=== PATIENT | female | born 1980 | race Caucasian/White ===

== ENCOUNTER 2017-02-19 16:21 | Emergency (ER) | payer OTHER ==
[~2017-02-19] VITALS: Ht 167.6 cm; Wt 83.0 kg
[2017-02-19 16:23] VITALS: BP 139/76; PULSE 90; RESP 18; TEMP 98.6; O2SAT 98
--- NOTE | 2017-02-19 16:32 | PD ---
Physical Exam Date Seen by Provider: Feb 19, 2017 Time Seen by Provider: 16:31 Narrative 36 YOWF C/O LBP WITH SCIATICA AFTER LIFTING TODAY. H/O CHRONIC BACK PAIN. PAIN . VS NOTED WAITING FOR BED PLACEMENT Data Data Last Documented VS Vital Signs Date Time Temp Pulse Resp B/P (MAP) Pulse Ox O2 Delivery O2 Flow Rate FiO2 02/19/17 16:23 98.6 90 18 139/76 (97) 98 Room Air MDM Medical Record Reviewed: No Supervised Visit with BOB: Yes Isidro Rodriguez Feb 19, 2017 16:32
--- NOTE | 2017-02-19 16:44 | PD ---
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 History of chronic back pain. Reports intermittent numbness and tingling in her toes but denies loss of sensation. Patient is a with a limp to the left lower extremity. Denies encopresis, incontinence, saddle anesthesias. Denies IV drug use or cancer. Denies fever, vomiting, change in urine or stool. Has taken ibuprofen for symptom management. Symptoms are mild in severity. Has no other medical complaints. No other modifying factors or associated signs and symptoms. PFSH Past Medical History Cardiovascular Problems: Yes (MVP) Diabetes: Yes ?: Not Past Surgical History Hysterectomy: Yes (5 YEARS AGO) Social History Tobacco Use: No Allergies-Medications (Allergen,Severity, Reaction): Coded Allergies: ketorolac (Verified Allergy, Unknown, Hives, 02/19/17) meperidine (Verified Allergy, Unknown, Nausea/Vomiting, 02/19/17) tramadol (Verified Allergy, Unknown, Itching, 02/19/17) Reported Meds & Prescriptions Reported Meds & Active Scripts Active Ibuprofen 800 Mg Tab 800 Mg PO Q6HR PRN Robaxin (Methocarbamol) 500 Mg Tab 500 Mg PO QID PRN Review of Systems Except as stated in HPI: all other systems reviewed are Neg Physical Exam Narrative GENERAL: Well-nourished, well-developed female patient, in no acute distress; afebrile, nontoxic-appearing SKIN: Warm and dry. HEAD: Atraumatic. Normocephalic. EYES: Pupils equal and round. No scleral icterus. No injection or drainage. ENT: Mucosa pink and moist. Airway patent. NECK: Trachea midline. CARDIOVASCULAR: Regular rate. RESPIRATORY: No accessory muscle use. GASTROINTESTINAL: Flat. MUSCULOSKELETAL: Bilateral lower extremities supple and non-tense with 2+ pedal pulses and sensory intact; with full range of motion and 5/5 strength. 2 + DTRs bilaterally. Active dorsiflexion and extension of bilateral feet. Left straight leg raise is positive for low back pain. Ambulatory in room with normal gait. Sitting up in bed at 90. No obvious deformities. No clubbing. No cyanosis. No edema. BACK: No midline point tenderness on palpation of the lumbar spine. Tenderness on palpation of left lumbar iliosacral area. No obvious deformities. NEUROLOGICAL: Awake and alert. Oriented 3. No obvious cranial nerve deficits. Motor grossly within normal limits. Normal speech. Moves all extremities. 5/5 strength to all extremities. Sensory intact. PSYCHIATRIC: Appropriate mood and affect; insight and judgment normal. Data Data Last Documented VS Vital Signs Date Time Temp Pulse Resp B/P (MAP) Pulse Ox O2 Delivery O2 Flow Rate FiO2 02/19/17 17:03 02/19/17 16:23 98.6 90 18 98 Room Air Orders Orders Orphenadrine Inj (Norflex Inj) (02/19/17 17:00) Ibuprofen (Motrin) (02/19/17 17:00) [facility] Medical Decision Making Medical Screen Exam Complete: Yes Emergency Medical Condition: Yes Medical Record Reviewed: Yes Differential Diagnosis Low back pain, sciatica, lumbar radiculopathy, low back strain Narrative Course 36-year-old female physical exam and history of present illness consistent with left-sided low back pain with sciatica. Denies encopresis, incontinence, saddle anesthesias. Denies IV drug use or cancer. Patient is ambulatory in the room with a limp to the left lower extremity. No midline tenderness on palpation of the lumbar spine. Ibuprofen and Norflex administered in the ER. Ibuprofen or Robaxin prescribed for home. Instructed patient to follow up with primary care provider. Patient verbalizes understanding and agreement with treatment plan. Patient is medically cleared and stable for discharge. Discussed reasons to return to the emergency department. Patient agrees with treatment plan. The patients vital signs are stable and the patient is stable for outpatient follow-up and treatment. Patient discharged home, stable and in no acute distress. Diagnosis Primary Impression: Left-sided low back pain with sciatica Qualified Codes: M54.42 - Lumbago with sciatica, left side Referrals: Primary Care Physician Patient Instructions: Acute Low Back Pain (ED), General Instructions, Sciatica (ED) Additional Instructions: Tylenol or ibuprofen as directed and as needed for pain Robaxin as prescribed and as needed for muscle spasms Heating pad and/or ice to affected area to reduce pain Avoid aggravating activities; increase activity as tolerated Follow-up with primary care provider Return to emergency department immediately with worsening of symptoms Med/Other Pt SpecificInfo: Prescription(s) given Scripts Ibuprofen (Ibuprofen) 800 Mg Tab 800 MG PO Q6HR Y for PAIN, #30 TAB 0 Refills Prov: Syl Oscar 02/19/17 Methocarbamol (Robaxin) 500 Mg Tab 500 MG PO QID Y for MUSCLE SPASM, #30 TAB 0 Refills Prov: Syl Oscar 02/19/17 Disposition: 01 DISCHARGE HOME Condition: Stable Syl Oscar Feb 19, 2017 16:44
[2017-02-19] MEDS ORDERED: IBUP800T23 PO (16:50)
[2017-02-19] MEDS ORDERED: ROBA500T PO (16:50)
[2017-02-19] MEDS ORDERED: IBUPROFEN 800 MG TAB PO ONE (17:00)
[2017-02-19] MEDS ORDERED: ORPHENADRINE INJ 60 MG/2 ML AMP IM ONE (17:00)
== END 2017-02-19 17:15 | disposition home or self-care (01) ==
LOC: NEPK 16:21
DX: M54.42 Lumbago with sciatica, left side (principal)
CPT/HCPCS: 96372; 99284; J2360

== ENCOUNTER 2017-06-18 15:57 | Emergency (ER) | payer MEDICAID, OTHER ==
[~2017-06-18 15:57] MED LIST: IBUP1TAB7 PO; ROBA500T PO
[2017-06-18 15:58] VITALS: BP 160/78; PULSE 79; RESP 20; TEMP 98.5; O2SAT 97
--- NOTE | 2017-06-18 16:46 | PD ---
HPI Chief Complaint: Anxiety Time Seen by Provider: 16:56 Travel History International Travel<30 days: No Contact w/Intl Traveler<30days: No Traveled to known affect area: No History of Present Illness HPI IS AT [facility] AFTER AICD PLACEMENT AND APPARENTLY DIDNOT WORK PROPERLY AND HER WAS CODED AND IS A CODE COOL BEING REWARMED NOW. HOWEVER, PATIENT WAS ON WAY HOME WHEN SHE WAS OVERWHELMED WITH EMOTIONS AND DECIDED TO COME HERE. PATIENT DENIES ANY SI/HI. PATIENT DROVE HERE SO REQUESTED A PRESCRIPTION RATHER THAN ANY MEDS NOW [facility] Past Medical History Cardiovascular Problems: Yes (MVP) Diabetes: Yes ?: Not Past Surgical History Hysterectomy: Yes (5 YEARS AGO) Social History Tobacco Use: No Allergies-Medications (Allergen,Severity, Reaction): Coded Allergies: ketorolac (Verified Allergy, Unknown, Hives, 02/19/17) meperidine (Verified Allergy, Unknown, Nausea/Vomiting, 02/19/17) tramadol (Verified Allergy, Unknown, Itching, 02/19/17) Reported Meds & Prescriptions Reported Meds & Active Scripts Active Ambien (Zolpidem Tartrate) 10 Mg Tab 10 Mg PO HS PRN Ibuprofen 800 Mg Tab 800 Mg PO Q6HR PRN Robaxin (Methocarbamol) 500 Mg Tab 500 Mg PO QID PRN Review of Systems Except as stated in HPI: all other systems reviewed are Neg Psychiatric: Positive: Anxiety Physical Exam Narrative GENERAL: SKIN: Warm and dry. HEAD: Atraumatic. Normocephalic. EYES: Pupils equal and round. No scleral icterus. No injection or drainage. ENT: No nasal bleeding or discharge. Mucous membranes pink and moist. NECK: Trachea midline. No JVD. CARDIOVASCULAR: Regular rate and rhythm. RESPIRATORY: No accessory muscle use. Clear to auscultation. Breath sounds equal bilaterally. GASTROINTESTINAL: Abdomen soft, non-tender, nondistended. Hepatic and splenic margins not palpable. MUSCULOSKELETAL: Extremities without clubbing, cyanosis, or edema. No obvious deformities. NEUROLOGICAL: Awake and alert. No obvious cranial nerve deficits. Motor grossly within normal limits. Five out of 5 muscle strength in the arms and legs. Normal speech. PSYCHIATRIC: ANXIOUS mood and affect; insight and judgment normal. Data Data Last Documented VS Vital Signs Date Time Temp Pulse Resp B/P (MAP) Pulse Ox O2 Delivery O2 Flow Rate FiO2 06/18/17 15:58 98.5 79 20 160/78 (105) 97 Room Air MDM Medical Decision Making Medical Screen Exam Complete: Yes Emergency Medical Condition: Yes Medical Record Reviewed: Yes Differential Diagnosis STERSS REACTION Diagnosis Primary Impression: STRESS REACTION AND INSOMNIA Patient Instructions: Anxiety (ED), General Instructions Scripts Zolpidem (Ambien) 10 Mg Tab 10 MG PO HS Y for INSOMNIA, #7 TAB 0 Refills Prov: Ilan Galloway MD 06/18/17 Disposition: 01 DISCHARGE HOME Condition: Stable Ilan Galloway MD Jun 18, 2017 16:46
[2017-06-18] MEDS ORDERED: AMBI10TA PO (17:04)
== END 2017-06-18 17:20 | disposition home or self-care (01) ==
LOC: NEPD 15:57
DX: F43.9 Reaction to severe stress, unspecified (principal); G47.00 Insomnia, unspecified; E11.9 Type 2 diabetes mellitus without complications; I34.1 Nonrheumatic mitral (valve) prolapse; Z79.899 Other long term (current) drug therapy; Z88.5 Allergy status to narcotic agent; Z88.8 Allergy status to other drugs, medicaments and biological substances
CPT/HCPCS: 99283

== ENCOUNTER 2017-07-01 07:13 | Emergency (ER) | payer MEDICAID ==
[~2017-07-01] VITALS: Ht 167.6 cm; Wt 94.0 kg
[~2017-07-01 07:13] MED LIST changes: +AMBI10TA PO
[2017-07-01 07:14] VITALS: BP 112/81; PULSE 92; RESP 14; TEMP 98.4; O2SAT 98
--- NOTE | 2017-07-01 07:24 | PD ---
HPI Chief Complaint: Cold / Flu Symptoms Time Seen by Provider: 07:23 Travel History International Travel<30 days: No Contact w/Intl Traveler<30days: No Traveled to known affect area: No History of Present Illness HPI 36-year-old female presents the emergency department with 4 day history of upper respiratory symptoms including sore throat, cough, and congestion. Patient states her recently , so she has been crying a lot when she originally complained or congestion on. Patient however states her congestion is worsening in her chest, and she is coughing up yellowish sputum. She has felt chills but denies specific fever. No nausea, vomiting, or diarrhea is noted. Sore throat seems worse this morning. Patient is a smoker. Patient states she gets bronchitis twice a year. Sore throat pain is about a 6 out of 10. She is allergic to Toradol, meperidine, and tramadol. PFSH Past Medical History Cardiovascular Problems: Yes (MVP) Diabetes: Yes Diminished Hearing: No ?: Not Past Surgical History Hysterectomy: Yes Social History Alcohol Use: Yes (occu) Tobacco Use: Yes (1/2ppd-2 ppd) Substance Use: No Allergies-Medications (Allergen,Severity, Reaction): Coded Allergies: ketorolac (Verified Allergy, Unknown, Hives, 07/01/17) meperidine (Verified Allergy, Unknown, Nausea/Vomiting, 07/01/17) tramadol (Verified Allergy, Unknown, Itching, 07/01/17) Reported Meds & Prescriptions Reported Meds & Active Scripts Active Tessalon Perles (Benzonatate) 100 Mg Cap 100 Mg PO TID PRN Ambien (Zolpidem Tartrate) 10 Mg Tab 10 Mg PO HS PRN Ibuprofen 800 Mg Tab 800 Mg PO Q6HR PRN Robaxin (Methocarbamol) 500 Mg Tab 500 Mg PO QID PRN Review of Systems Except as stated in HPI: all other systems reviewed are Neg General / Constitutional: Positive: Chills, No: Fever Eyes: No: Visual changes HENT: Positive: Headaches, Sore Throat, Rhinitis, Rhinorrhea, Congestion, No: Vertigo, Lightheadedness, Nosebleed, Neck Stiffness, Neck Pain, Dental Difficulties, Ear Discharge, Earache Cardiovascular: No: Chest Pain or Discomfort Respiratory: Positive: Cough, Shortness of Breath, Wheezing, No: Sneezing, Orthopnea, Hemoptysis, Night Sweats, Pleuritic Pain Gastrointestinal: No: Nausea, Vomiting, Diarrhea, Abdominal Pain Genitourinary: No: Dysuria Musculoskeletal: No: Pain Skin: No Rash Neurologic: No: Weakness Psychiatric: No: Depression Endocrine: No: Polydipsia Hematologic/Lymphatic: No: Easy Bruising Physical Exam Narrative GENERAL: Patient appears ill but not septic. SKIN: Warm and dry. Normal color. Normal turgor. HEAD: Atraumatic. Normocephalic. No sinus tenderness with palpation or percussion. EYES: Pupils equal and round. No scleral icterus. No injection or drainage. ENT: No nasal bleeding or discharge. Mucous membranes pink and moist. Posterior pharynx is mildly erythematous without significant swelling, uvula midline, and no significant tonsillitis. TMs are dull bilaterally with no injection. NECK: Trachea midline. No JVD. Supple and nontender. CARDIOVASCULAR: Regular rate and rhythm. RESPIRATORY: No accessory muscle use. Coarse with mild wheezes throughout to auscultation. Breath sounds equal bilaterally. GASTROINTESTINAL: Abdomen soft, non-tender, nondistended. Hepatic and splenic margins not palpable. MUSCULOSKELETAL: Extremities without clubbing, cyanosis, or edema. No obvious deformities. NEUROLOGICAL: Awake and alert. No obvious cranial nerve deficits. Motor grossly within normal limits. Five out of 5 muscle strength in the arms and legs. Normal speech. PSYCHIATRIC: Appropriate mood and affect; insight and judgment normal. Data Data Last Documented VS Vital Signs Date Time Temp Pulse Resp B/P (MAP) Pulse Ox O2 Delivery O2 Flow Rate FiO2 07/01/17 07:14 98.4 92 14 112/81 (91) 98 MDM Medical Decision Making Medical Screen Exam Complete: Yes Emergency Medical Condition: Yes Medical Record Reviewed: Yes Differential Diagnosis Upper respiratory symptoms. Sinus congestion. Pharyngitis. Postnasal drip. Bronchitis. Wheezing. Narrative Course Patient will be treated for wheezy bronchitis. Patient is given azithromycin Dosepak as prescribed. Patient is given albuterol metered-dose inhaler 2 puffs every 4-6 hours Patient given Tessalon Perles, 3 times a day when necessary #12. Patient is encouraged to quit smoking as soon as possible. Patient follow with her primary care physician as needed. Diagnosis Primary Impression: Wheezy bronchitis Referrals: Primary Care Physician Patient Instructions: General Instructions Additional Instructions: Patient will be treated for wheezy bronchitis. Patient is given azithromycin Dosepak as prescribed. Patient is given albuterol metered-dose inhaler 2 puffs every 4-6 hours Patient given Tessalon Perles, 3 times a day when necessary #12. Patient is encouraged to quit smoking as soon as possible. Patient follow with her primary care physician as needed. Med/Other Pt SpecificInfo: Prescription(s) given Scripts Albuterol 18 GM Inh (Ventolin Hfa 18 GM Inh) 90 Mcg/Act Aer 2 PUFF INH Q4-6H Y for SHORTNESS OF BREATH, #1 INHALER 0 Refills Prov: Kristina Dennis MD 07/01/17 Azithromycin (Azithromycin) 250 Mg Tab 250 MG PO DIRECTED for Infection, #6 TAB 0 Refills Take 2 tabs (500 mg) on day 1 then 1 tab daily x 4 days. Prov: Kristina Dennis MD 07/01/17 Benzonatate (Tessalon Perles) 100 Mg Cap 100 MG PO TID Y for COUGH, #12 CAP 0 Refills Prov: Kristina Dennis MD 07/01/17 Disposition: 01 DISCHARGE HOME Condition: Stable William Davis Jul 01, 2017 07:24
[2017-07-01] MEDS ORDERED: BENZ100 PO ×2 (07:28→07:29)
[2017-07-01] MEDS ORDERED: VENTAER INH (07:29)
[2017-07-01] MEDS ORDERED: AZIT250T3 PO (07:29)
[2017-07-01] MEDS ORDERED: BUSP5TAB PO (07:31)
[2017-07-01] MEDS ORDERED: CANA100T PO (07:31)
== END 2017-07-01 07:51 | disposition home or self-care (01) ==
LOC: NEPD 07:13
DX: J40 Bronchitis, not specified as acute or chronic (principal); R51 Headache; E11.9 Type 2 diabetes mellitus without complications; F17.200 Nicotine dependence, unspecified, uncomplicated; Z79.899 Other long term (current) drug therapy; Z88.5 Allergy status to narcotic agent; Z88.8 Allergy status to other drugs, medicaments and biological substances
CPT/HCPCS: 99284